=== PATIENT | female | born 1945 | race Caucasian/White ===

== ENCOUNTER → 2016-09-18 | Outpatient (CLI) | payer MEDICARE, OTHER ==
[~2016-09-18] MED LIST: ASPIRIN EC81 M1 PO; ASPIRINEC PO; CITALOPRAM HBR40 MG PO; FEOSOL PO; HYDROCODON-ACE1 EAC7 PO; LEVOTHYROXINE50 MCG PO; LISINOPRIL20 MG PO; PANTOPRAZOLE SO40 MG PO; PROTONIX PO; VITAMIN B12 INJ; ZOLOFT PO
--- NOTE | ~2016-09-18 | CT2 ---
[facility] A Service of [facility] RADIOLOGY TEXT RESULTS PATIENT: [facility] UN[facility] #: [id number] AGE: [address]: Bill Freeman MD SEX: F ORDER DR: [id number] [facility] [address] [facility] [place], [place] [address] [id number] O MR#: [id number] Acc #: [id number] NAME: FERNIE PEARSON : 1945 SEX: F STUDY DATE/TIME: 09/18/2016 14:39 UNIT: [facility] ROOM: STUDY DESCRIPTION: CT Abd and Pelv W Cont Attending Physician: Bill Freeman M.D. Referring Physician: Bill Freeman M.D. Ordering Physician: Bill Freeman M.D. Primary Care Physician: Bill Freeman M.D. MEDICAL IMAGING REPORT This report is preliminary unless electronic signature is present EXAM CT of the abdomen and pelvis with contrast INDICATION Severe diarrhea for 1 month. Right lower quadrant pain for 2-[address] of the abdomen and pelvis was performed following the administration of oral and IV contrast. Coronal and sagittal reformatted images are obtained. This CT exam was performed with one or more of the following radiation dose reduction techniques: automatic exposure control, adjustment of mA and/or kV according to patient size, and iterative reconstruction. Comparison with 07/01/2010. FINDINGS There is a large hiatal hernia containing the entire stomach and also a portion of colon. There is some scattered tree-in-bud nodularity in the base of the right lower lobe which is nonspecific and may represent infectious/inflammatory small airways disease. The liver, gallbladder, and spleen are unremarkable. There are multiple cysts within the left kidney. The right kidney is unremarkable. The adrenal glands are unremarkable. The pancreas is unremarkable. PELVIS: Extensive diverticulosis involving the sigmoid colon and scattered diverticula elsewhere within the colon. No evidence for acute diverticulitis. The appendix is normal. The remainder of the pelvis is unremarkable. Bone windows demonstrate degenerative changes lumbar spine. IMPRESSION [facility] A Service of [facility] RADIOLOGY TEXT RESULTS PATIENT: FERN[facility] PEARSON [facility] 43 UNIT #: [id number] AGE: [address]: Bill Freeman MD SEX: F ORDER DR: 1. Very large hiatal hernia. 2. Extensive diverticulosis within the sigmoid colon but no evidence for acute diverticulitis. 3. Additional findings as described. Dictated by... Umesh Carvajal M.D. THIS IS AN ELECTRONICALLY VERIFIED REPORT Umesh Carvajal M.D. at 09/19/2016 10:08 AM ROMARIO/tamiko TD: 09/18/2016 21:22 JOB #: [id number] MEDICAL IMAGING REPORT Page 1 of 1 COPY
[2016-09-18 14:45] LABS: POC - GFR >60.0 mL/min (>60)
== END | disposition home or self-care (01) ==
LOC: CCAT 12:53
PROVIDERS: Internal Medicine
DX: R10.31 Right lower quadrant pain (principal); K44.9 Diaphragmatic hernia without obstruction or gangrene; K57.30 Diverticulosis of large intestine without perforation or abscess without bleeding
CPT/HCPCS: 74177; 82565; Q9967